=== PATIENT | female | born 1955 | race African-American/Black ===

== ENCOUNTER 2022-11-20 18:49 | Emergency (ER) | payer OTHER ==
[2022-11-20 19:10] VITALS: BP 160/72; PULSE 60; RESP 20; TEMP 99; BMI 43.0
[2022-11-20 20:01] LABS: HEMATOCRIT 32.8 % (32.4-45.2); HEMOGLOBIN 10.6 G/dL (10.7-15.3); MCH 27.4 pg (25.7-33.7); MCHC 32.4 g/dl (32.0-36.0); MEAN CELL VOLUME 84.8 fl (80-96); MEAN PLT VOLUME 9.8 fl (7.5-11.1); PLATELET COUNT 307.7 10^3/uL (134-434); RBC 3.87 10^6/uL (3.60-5.2); RDW 18.8 % (11.6-15.6); WHITE BLOOD COUNT 7.4 10^3/uL (4.0-10.8)
[2022-11-20 20:17] LABS: ALBUMIN 4.1 g/dl (3.4-5.0); BILIRUBIN,TOTAL 0.4 mg/dl (0.2-1); BLOOD UREA NITROGEN 24.5 mg/dl (7-18); CREATININE 1.6 mg/dl (0.6-1.3); POTASSIUM 3.5 mmol/L (3.5-5.1); SGPT/ALT 10.5 U/L (7-52); TOT PROT 6.8 g/dl (6.4-8.2)
== END 2022-11-20 21:20 | disposition home or self-care (01) ==
LOC: FER 18:49
DX: R60.0 Localized edema (principal)
CPT/HCPCS: 36415; 80053; 85027; 93970-TC; 99284-25

== ENCOUNTER 2024-01-29 17:13 | Emergency (ER) | payer OTHER ==
[2024-01-29 17:24] VITALS: TEMP 98.8; BMI 43.0
[2024-01-29 18:31] LABS: BASO % 0.8 % (0-2.0); EOS % 5.4 % (0-4.5); HEMATOCRIT 34.7 % (32.4-45.2); LYMPH % 39.4 % (8-40); MCH 26.6 pg (25.7-33.7); MCHC 31.8 g/dl (32.0-36.0); MEAN CELL VOLUME 83.6 fl (80-96); MEAN PLT VOLUME 8.5 fl (7.5-11.1); MONO % 10.2 % (3.8-10.2); NEUT % 44.2 % (42.8-82.8); PLATELET COUNT 278 10^3/uL (134-434); RBC 4.15 M/mm3 (3.60-5.2); RDW 16.9 % (11.6-15.6); WHITE BLOOD COUNT 6.8 K/mm3 (4.0-10.0)
[2024-01-29 18:52] LABS: INR 0.95 (0.83-1.09); PROTHROMBIN TIME (PATIENT) 10.9 SEC (9.7-13.0)
[2024-01-29 18:55] LABS: ACTIVATED PTT 35.3 SECONDS (25.2-36.5)
[2024-01-29 18:56] LABS: POTASSIUM 3.7 mmol/L (3.5-5.1)
[2024-01-29 18:58] LABS: CALCIUM 8.1 mg/dL (8.5-10.1)
[2024-01-29 18:59] LABS: ALBUMIN 3.3 g/dl (3.4-5.0); BLOOD UREA NITROGEN 28.5 mg/dL (7-18)
[2024-01-29 19:02] LABS: CREATININE 1.7 mg/dL (0.55-1.3)
[2024-01-29 19:04] LABS: BILIRUBIN,TOTAL 0.3 mg/dL (0.2-1); TOT PROT 6.4 g/dl (6.4-8.2)
[2024-01-29 19:59] VITALS: BP 136/68; PULSE 44; RESP 18
== END 2024-01-29 20:34 | disposition home or self-care (01) ==
LOC: JER 17:13
DX: R58 Hemorrhage, not elsewhere classified (principal); M79.81 Nontraumatic hematoma of soft tissue
CPT/HCPCS: 36415; 80053; 85025; 85610; 85730; 93005; 93010; 99284-25

== ENCOUNTER 2024-04-18 14:43 | Observation (INO) | payer OTHER ==
[2024-04-18] MEDS ORDERED: CEFAZOLIN 1 GM/D5W 1 GM/50 ML BAG ONE (17:31)
[2024-04-18 17:50] LABS: BASO % 0.6 % (0-2.0); EOS % 4.1 % (0-4.5); HEMATOCRIT 40.2 % (32.4-45.2); HEMOGLOBIN 12.6 GM/dL (10.7-15.3); LYMPH % 39.8 % (8-40); MCH 25.8 pg (25.7-33.7); MCHC 31.4 g/dl (32.0-36.0); MEAN CELL VOLUME 82.1 fl (80-96); MEAN PLT VOLUME 8.4 fl (7.5-11.1); MONO % 8.1 % (3.8-10.2); NEUT % 47.4 % (42.8-82.8); PLATELET COUNT 326 10^3/uL (134-434); RDW 16.8 % (11.6-15.6); WHITE BLOOD COUNT 8.7 K/mm3 (4.0-10.0)
[2024-04-18 18:06] LABS: POTASSIUM 3.6 mmol/L (3.5-5.1)
[2024-04-18 18:08] LABS: CALCIUM 9.1 mg/dL (8.5-10.1)
[2024-04-18 18:09] LABS: BLOOD UREA NITROGEN 31.2 mg/dL (7-18)
[2024-04-18 18:12] LABS: CREATININE 1.7 mg/dL (0.55-1.3)
[2024-04-18 18:13] LABS: BILIRUBIN,TOTAL 0.3 mg/dL (0.2-1)
[2024-04-18 18:14] LABS: ACTIVATED PTT 37.5 SECONDS (25.2-36.5); INR 0.94 (0.83-1.09); PROTHROMBIN TIME (PATIENT) 10.6 SEC (9.7-13.0)
[2024-04-18] MEDS ORDERED: PIPERACILLIN/TAZOB 2.25 GM 2.25 GM in DEXTROSE 5%-WATER - 50 ML IVPB ONE (18:46)
[2024-04-18] MEDS: CEFAZOLIN 1 GM in DEXTROSE 5%-WATER - 50 ML IVPB ONE (19:01)
[2024-04-18 22:49] VITALS: BMI 40.4
[2024-04-18] MEDS: CEFAZOLIN 1 GM/D5W 1 GM/50 ML BAG IVPB SCH (23:03)
[2024-04-18] MEDS: CEFTRIAXONE 1 GM in DEXTROSE 5%-WATER - 100 ML IVPB ONE (23:03)
[2024-04-19] MEDS: PIPERACILLIN/TAZOB 2.25 GM 2.25 GM/50 ML BAG IVPB SCH ×2 (01:00→09:40)
[2024-04-19] MEDS: hydrALAZINE HCL 50 MG TABLET (FP) PO ONE (07:13)
[2024-04-19] MEDS ORDERED: BUPIVACAINE HCL/PF 0.5% (5MG/ML) 10 ML VIAL ONE (07:36)
[2024-04-19] MEDS ORDERED: LIDOCAINE HCL 1%, 10 MG/ML (20ML VIAL) ONE (07:36)
[2024-04-19] MEDS ORDERED: PROPOFOL 40 ML ONE (08:09)
[2024-04-19] MEDS ORDERED: MIDAZOLAM HCL 2 MG/2 ML SINGLE DOSE VIAL ONE ×2 (08:24→08:28)
[2024-04-19] MEDS: ceFAZolin SODIUM 1 GM VIAL IVPB ONE (08:29)
[2024-04-19] MEDS: BUPIVACAINE HCL/PF 0.5% (5 MG/ML) 30 ML VIAL IJ ONE (08:39)
[2024-04-19] MEDS: LIDOCAINE HCL 1%, 10 MG/ML (20ML VIAL) INF ONE (08:39)
[2024-04-19] MEDS ORDERED: ACETAMINOPHEN INJECTION 100 ML ONE (09:28)
[2024-04-19] MEDS: ACETAMINOPHEN 1000 MG/100 ML BAG IVPB ONE (09:30)
[2024-04-19 10:11] VITALS: RESP 18
[2024-04-19 13:32] VITALS: BP 145/73; PULSE 59; TEMP 97.6
== END 2024-04-19 13:38 | disposition home or self-care (01) ==
LOC: JER 14:43 → JERBED 16:43 → J6S 20:48
PROVIDERS: ADMIT Internal Medicine; ATTEND Internal Medicine
PROC: 0H9U0ZZ Drainage of Left Breast, Open Approach (ICD-10-PCS; principal; 2024-04-18)
PROC: 3E03329 Introduction of Other Anti-infective into Peripheral Vein, Percutaneous Approach (ICD-10-PCS; 2024-04-18)
PROC: 3E033NZ Introduction of Analgesics, Hypnotics, Sedatives into Peripheral Vein, Percutaneous Approach (ICD-10-PCS; 2024-04-18)
DX: N60.82 Other benign mammary dysplasias of left breast (principal); J44.9 Chronic obstructive pulmonary disease, unspecified; I12.9 Hypertensive chronic kidney disease with stage 1 through stage 4 chronic kidney disease, or unspecified chronic kidney disease; E11.22 Type 2 diabetes mellitus with diabetic chronic kidney disease; N18.4 Chronic kidney disease, stage 4 (severe); I11.0 Hypertensive heart disease with heart failure
CPT/HCPCS: 10060; 36415; 71046-TC-FY; 80053; 85025; 85610; 85730; 86850; 86900; 86901; 87070; 87205; 88304-TC; 93005; 93010; 94760; 96365; 96367; 96375; 99285-25; G0378; J0131